=== PATIENT | female | born 1970 | race Caucasian/White ===

== ENCOUNTER 2017-02-11 15:33 | Observation (INO) | payer MEDICAID ==
[~2017-02-11] VITALS: Ht 180.3 cm; Wt 73.0 kg
[2017-02-11] MEDS ORDERED: LORazepam 1MG TABLET PO ONE (17:00)
[2017-02-11] MEDS ORDERED: LORazepam 1MG TABLET ONE (17:41)
[2017-02-11] MEDS ORDERED: ZIPRASIDONE 20 MG INJ IM ONE ×2 (18:29→18:30)
[2017-02-11 18:38] LABS: ASPARTATE AMINO TRANSFERASE 22 U/L (15-37); BLOOD UREA NITROGEN 16 mg/dL (7-18)
[2017-02-11 18:41] LABS: ACETAMINOPHEN < 2 mcg/mL (10-30)
[2017-02-11 20:57] LABS: DAU SCREEN DISCLAIMER
[2017-02-11] MEDS ORDERED: methylPREDNISolone SOD SUCC 125 MG/2 ML ONE (23:57)
[2017-02-12] MEDS ORDERED: BENZTROPINE 1 MG TABLET PO PRN (00:30)
[2017-02-12] MEDS ORDERED: DOCUSATE 100 MG CAPSULE PO PRN (00:30)
[2017-02-12] MEDS ORDERED: ACETAMINOPHEN 325 MG TABLET PO PRN (00:30)
[2017-02-12] MEDS ORDERED: ONDANSETRON ODT 4 MG PO PRN (00:30)
[2017-02-12] MEDS: NICOTINE 21 MG/24 HR PATCH.TD24 TD SCH (00:30)
[2017-02-12 00:45] VITALS: BP 95/55
[2017-02-12 08:22] VITALS: BP 119/80
[2017-02-12] MEDS: ZIPRASIDONE 20 MG INJ IM PRN (15:19)
[2017-02-12 20:16] VITALS: BP 115/64
[2017-02-13] MEDS: TRAZODONE 100MG TABLET PO PRN (01:02)
[2017-02-13] MEDS: QUETIAPINE 25MG TABLET PO PRN (01:02)
[2017-02-13] MEDS: ZIPRASIDONE 20 MG INJ IM PRN ×2 (05:48→20:43)
[2017-02-13 08:23] VITALS: BP 119/58
[2017-02-13] MEDS: NICOTINE 21 MG/24 HR PATCH.TD24 TD SCH (10:00)
[2017-02-13 19:45] VITALS: BP 114/59
[2017-02-14] MEDS: TRAZODONE 100MG TABLET PO PRN (05:07)
[2017-02-14 07:15] VITALS: BP 128/82
[2017-02-14] MEDS: ZIPRASIDONE 20 MG INJ IM PRN (08:00)
[2017-02-14] MEDS: QUETIAPINE 25MG TABLET PO PRN ×2 (09:56→17:26)
[2017-02-14] MEDS: NICOTINE 21 MG/24 HR PATCH.TD24 TD SCH (10:00)
[2017-02-15] MEDS: TRAZODONE 100MG TABLET PO PRN (01:56)
[2017-02-15] MEDS: QUETIAPINE 25MG TABLET PO PRN ×4 (01:56→20:58)
[2017-02-15 08:00] VITALS: BP 112/66
[2017-02-15] MEDS: NICOTINE 21 MG/24 HR PATCH.TD24 TD SCH (10:00)
[2017-02-15] MEDS: ZIPRASIDONE 20 MG INJ IM PRN (11:30)
[2017-02-15 19:59] VITALS: BP 91/52
[2017-02-16] MEDS: TRAZODONE 100MG TABLET PO PRN ×2 (03:09→21:52)
[2017-02-16] MEDS: QUETIAPINE 25MG TABLET PO PRN ×3 (03:20→13:48)
[2017-02-16 08:00] VITALS: BP 102/71
[2017-02-16] MEDS: NICOTINE 21 MG/24 HR PATCH.TD24 TD SCH (09:47)
[2017-02-16 19:03] VITALS: BP 109/73
[2017-02-17] MEDS: QUETIAPINE 25MG TABLET PO PRN (03:26)
[2017-02-17 07:40] VITALS: BP 114/77
[2017-02-17 08:26] LABS: ASPARTATE AMINO TRANSFERASE 16 U/L (15-37); BLOOD UREA NITROGEN 14 mg/dL (7-18)
[2017-02-17] MEDS: NICOTINE 21 MG/24 HR PATCH.TD24 TD SCH (10:00)
[2017-02-17] MEDS: ZIPRASIDONE 20 MG INJ IM PRN (10:50)
[2017-02-17] MEDS ORDERED: QUETIAPINE 25MG TABLET PO PRN (12:30)
== END 2017-02-17 18:26 ==
LOC: ED 17:49 → EDIP 23:55 → INTOOBSV 23:55 → 3E 02-12 00:43
PROVIDERS: ADMIT Family Medicine; ATTEND Family Medicine
DX: F29 Unspecified psychosis not due to a substance or known physiological condition (principal); F31.9 Bipolar disorder, unspecified; F22 Delusional disorders; F15.10 Other stimulant abuse, uncomplicated; F17.200 Nicotine dependence, unspecified, uncomplicated
CPT/HCPCS: 36415; 80053; 80307; 80329; 81001; 83735; 85025; 93005; 96372; 99285; G0378; J3486; G0480

== ENCOUNTER 2017-03-17 06:36 | Emergency (ER) | payer MEDICAID ==
[~2017-03-17] VITALS: Ht 177.8 cm; Wt 68.2 kg
[2017-03-17 06:42] VITALS: BP 112/72
== END 2017-03-17 07:59 | disposition home or self-care (01) ==
LOC: ED 07:48
DX: L02.413 Cutaneous abscess of right upper limb (principal); L02.414 Cutaneous abscess of left upper limb; Z59.0 Homelessness
CPT/HCPCS: 99283

== ENCOUNTER 2018-01-22 12:13 | Emergency (ER) | payer SELFPAY ==
[~2018-01-22] VITALS: Ht 180.3 cm; Wt 75.8 kg
[2018-01-22 12:19] VITALS: BP 114/73
[2018-01-22] MEDS ORDERED: LIDOCAINE-MPF 1%, 5ML INFIL ONE (13:00)
== END 2018-01-22 13:00 | disposition home or self-care (01) ==
LOC: ED 12:54
DX: L02.31 Cutaneous abscess of buttock (principal)
CPT/HCPCS: 99283

== ENCOUNTER 2018-05-18 13:11 | Emergency (ER) | payer OTHER, MEDICAID ==
[~2018-05-18] VITALS: Ht 180.3 cm; Wt 69.0 kg
[2018-05-18 13:14] VITALS: BP 118/55
== END 2018-05-18 14:32 | disposition home or self-care (01) ==
LOC: ED 14:27
DX: T19.2XXA Foreign body in vulva and vagina, initial encounter (principal); X58.XXXA Exposure to other specified factors, initial encounter; Y93.89 Activity, other specified; Y92.89 Other specified places as the place of occurrence of the external cause; Y99.8 Other external cause status
CPT/HCPCS: 99283

== ENCOUNTER 2019-09-06 11:59 | Emergency (ER) | payer MEDICAID ==
[~2019-09-06] VITALS: Ht 180.3 cm; Wt 71.0 kg
[2019-09-06 12:09] VITALS: BP 110/62
--- NOTE | 2019-09-06 12:14 | NUR ---
patient arrives with some blisters to ble states from wearing cleats for one week straight. she is unkept, missing teeth, she has very dirty feet.
[2019-09-06] MEDS ORDERED: NEOSPORIN OINT. PKT 1 PACKET ONE ×2 (12:20→12:21)
[2019-09-06] MEDS ORDERED: CEPHALEXIN 500 MG CAPSULE ONE (12:23)
[2019-09-06] MEDS ORDERED: SULFAMETH./TRIMETHOPRIM DS 800MG/160MG TABLET ONE (12:24)
[2019-09-06] MEDS ORDERED: SULFAMETH./TRIMETHOPRIM DS 800MG/160MG TABLET PO ONE (12:30)
[2019-09-06] MEDS ORDERED: CEPHALEXIN 500 MG CAPSULE PO ONE (12:30)
--- NOTE | 2019-09-06 12:31 | NUR ---
fsbs 100
== END 2019-09-06 12:40 | disposition home or self-care (01) ==
LOC: ED 12:38
DX: L03.116 Cellulitis of left lower limb (principal); L03.115 Cellulitis of right lower limb; F17.200 Nicotine dependence, unspecified, uncomplicated
CPT/HCPCS: 99283

== ENCOUNTER 2020-03-26 13:10 | Emergency (ER) | payer MEDICAID ==
[~2020-03-26] VITALS: Ht 180.3 cm; Wt 72.4 kg
[2020-03-26 13:36] VITALS: BP 102/59
--- NOTE | 2020-03-26 13:39 | NUR ---
PT AMBULATORY TO ROOM 5 W/ C/O R SIDE CP STARTED 2-3 WEEKS AGO. PT STATES WORSE W/ PALPATION. PT ALSO STATES SOME MIN RAN UP TO HER AND WIPED WHITE POWDER LIKE METH ON HER LEG AND SHE FELT IT IMMEDIATELY. PT ALSO HAS C/O SCAB TO L ARM. SCAB NOTED. PT RESTLESS IN ROOM. STATES "THERE'S PARASITES OR SOMETHING IN MY URINE". DENIES SI/HI. DENIES ANY PSYCH HX. PT RESTING ON GURNEY. NADN. MONITORS APPLIED. WARM BLANKET PROVIDED.
--- NOTE | 2020-03-26 13:40 | NUR ---
UA COLLECTED, LABELED, AND WALKED TO LAB. FLORIN BAEZ APRN NOTIFIED OF PT.
--- NOTE | 2020-03-26 13:59 | NUR ---
REPORT FROM FIORDALIZA JOEL. PT CARE RESPONSIBILITIES ASSUMED.
--- NOTE | 2020-03-26 14:00 | NUR ---
REPORT TO FIORDALIZA MÉNDEZ.
[2020-03-26] MEDS ORDERED: ASPIRIN 81 MG TABLET CHEW ONE (14:42)
[2020-03-26] MEDS ORDERED: ASPIRIN 81 MG TABLET CHEW PO ONE (15:00)
[2020-03-26 15:04] LABS: BASOPHILS # (AUTO) 0.04 x10^3/uL (0-0.1); BASOPHILS % (AUTO) 0 % (0-1); EOSINOPHILS # (AUTO) 0.19 x10^3/uL (0-0.4); EOSINOPHILS % (AUTO) 2 % (1-7); LYMPHOCYTES # (AUTO) 1.88 x10^3/uL (1-3.4); LYMPHOCYTES % (AUTO) 19 % (22-44); MD NO; MEAN CORPUSCULAR HEMOGLOBIN 29.9 pg (27.0-34.8); MEAN CORPUSCULAR HGB CONC 32.8 g/dL (32.4-35.8); MEAN CORPUSCULAR VOLUME 90.9 fL (80-100); MEAN PLATELET VOLUME 8.8 fL (7.4-10.4); MONOCYTES # (AUTO) 0.57 x10^3/uL (0.2-0.8); MONOCYTES % (AUTO) 6 % (2-9); NEUTROPHILS # (AUTO) 7.32 x10^3/uL (1.8-6.8); NEUTROPHILS % (AUTO) 73 % (42-75); PLATELET COUNT 232 x10^3/uL (130-400); RED BLOOD COUNT 5.02 x10^6/uL (3.82-5.3); RED CELL DISTRIBUTION WIDTH 13.3 % (9.6-15.2)
[2020-03-26 15:06] LABS: ALBUMIN 3.7 g/dL (3.4-5.0); CALCIUM 8.4 mg/dL (8.5-10.1); CHLORIDE 107 mmol/L (98-107); CREATININE 0.96 mg/dL (0.55-1.02)
[2020-03-26 15:10] LABS: TROPONIN I < 0.015 ng/mL (0.000-0.045)
[2020-03-26 15:11] LABS: ANION GAP 4 mmol/L (5-15)
== END 2020-03-26 16:31 | disposition home or self-care (01) ==
LOC: ED 14:13
DX: R07.89 Other chest pain (principal); R06.02 Shortness of breath
CPT/HCPCS: 36415; 71045; 80048; 82040; 84484; 85025; 99284

== ENCOUNTER 2020-09-10 08:09 | Emergency (ER) | payer MEDICAID ==
[~2020-09-10] VITALS: Ht 180.3 cm; Wt 63.8 kg
[2020-09-10 08:14] VITALS: BP 137/78
--- NOTE | 2020-09-10 08:21 | NUR ---
PATIENT WALKED BACK FROM TRIAGE WITH CHIEF C/O HAND PAIN. PATIENT STATES "MY BODY FEELS LIKE IT'S MELTING AND MY HANDS FEEL LIKE THEY'RE GOING TO FALL OFF, I NEED SHOTS, I NEED SPECIAL CARE." PATIENT STARTS RAMBLING ABOUT MULTIPLE THINGS, GOES OFF ON TANGENTS, EASILY REDIRECTED. NADN, CALL LIGHT WITHIN REACH.
[2020-09-10] MEDS ORDERED: ONDANSETRON 2MG/ML, 2ML IVPush ONE (08:30)
[2020-09-10] MEDS ORDERED: SODIUM CHLORIDE FLUSH 10ML SYR IVF ONE (08:30)
[2020-09-10] MEDS ORDERED: FAMOTIDINE 20 MG/2 ML IVPush ONE (08:30)
[2020-09-10] MEDS ORDERED: LORazepam 1MG TABLET PO ONE (08:30)
--- NOTE | 2020-09-10 08:49 | NUR ---
X-RAY AT BEDSIDE.
[2020-09-10 09:08] LABS: CHLORIDE 105 mmol/L (98-107)
--- NOTE | 2020-09-10 09:11 | NUR ---
PATIENT AMBULATED TO BATHROOM FOR URINE SAMPLE.
[2020-09-10 09:15] LABS: ALANINE AMINOTRANSFERASE 25 U/L (12-78); ALBUMIN 4.3 g/dL (3.4-5.0); ALKALINE PHOSPHATASE 88 U/L (45-117); ANION GAP 6 mmol/L (5-15); BASOPHILS % (AUTO) 0 % (0-1); BILIRUBIN,TOTAL 0.8 mg/dL (0.2-1.0); CALCIUM 9.6 mg/dL (8.5-10.1); CREATININE 0.93 mg/dL (0.55-1.02); EOSINOPHILS % (AUTO) 2 % (1-7); LYMPHOCYTES % (AUTO) 21 % (22-44); MEAN CORPUSCULAR HEMOGLOBIN 29.9 pg (27.0-34.8); MEAN CORPUSCULAR HGB CONC 33.9 g/dL (32.4-35.8); MEAN PLATELET VOLUME 9.3 fL (7.4-10.4); MONOCYTES % (AUTO) 8 % (2-9); NEUTROPHILS % (AUTO) 70 % (42-75); PLATELET COUNT 250 x10^3/uL (130-400); RED BLOOD COUNT 5.45 x10^6/uL (3.82-5.3); RED CELL DISTRIBUTION WIDTH 13.1 % (9.6-15.2); TOTAL PROTEIN 7.9 g/dL (6.4-8.2)
[2020-09-10 09:16] LABS: MD NO
[2020-09-10 09:17] LABS: SALICYLATE LEVEL < 1.7 mg/dL (2.8-20.0)
--- NOTE | 2020-09-10 09:18 | NUR ---
URINE SAMPLE COLLECTED AND SENT TO LAB, CRACKERS AND SODA PROVIDED FOR PATIENT.
[2020-09-10 09:39] LABS: AMPHETAMINE SCREEN, URINE Positive (Negative); BARBITURATE SCREEN, URINE Negative (Negative); BENZODIAZEPINE SCREEN, URINE Negative (Negative); CANNABINOID SCREEN, URINE Positive (Negative); COCAINE SCREEN, URINE Negative (Negative); METHADONE SCREEN, URINE Negative (Negative); OPIATE SCREEN, URINE Negative (Negative)
[2020-09-10] MEDS ORDERED: KETOROLAC 30 MG/1 ML ONE (09:40)
[2020-09-10] MEDS ORDERED: KETOROLAC 30 MG/1 ML IM ONE (10:00)
--- NOTE | 2020-09-10 10:11 | NUR ---
Patient given discharge instructions and prescription and they have confirmed that they understand the instructions. Patient ambulatory with steady gait from ED.
== END 2020-09-10 10:12 | disposition home or self-care (01) ==
LOC: ED 09:30
DX: M79.641 Pain in right hand (principal); M79.642 Pain in left hand; F15.950 Other stimulant use, unspecified with stimulant-induced psychotic disorder with delusions; F17.290 Nicotine dependence, other tobacco product, uncomplicated; Z59.0 Homelessness
CPT/HCPCS: 36415; 73130; 80053; 80299; 80307; 80320; 80329; 85025; 96372; 99284; J1885; G0480

== ENCOUNTER 2020-11-03 04:38 | Emergency (ER) | payer MEDICAID ==
[~2020-11-03] VITALS: Ht 180.3 cm; Wt 69.5 kg
[2020-11-03 04:51] VITALS: BP 105/80
--- NOTE | 2020-11-03 05:00 | NUR ---
PATIENT ESCORTED TO ROOM BY TECH. PATIENT WAS THEN SEEN WALKING OUT OF ROOM AND OPENING DOORS TO OTHER ED ROOMS DOWN [address]. RN ASKED PATIENT TO GO BACK TO HER ROOM AND PATIENT STATED "I DONT LIKE THAT ROOM. I WANT THIS ROOM" POINTING TO A DIFFERENT ROOM. RN EXPLAINED THAT PATIENT WAS PUT IN THIS ROOM AND THIS IS WHERE THE PROVIDER WOULD SEE HER. PATIENT PANTS ARE HUNG ASSISTED DOWN BUTTOCKS WHERE HER BUTTOCKS WAS EXPOSED. PATIENT AMBULATED BACK TO PREVIOUS ROOM AND SAT DOWN IN CHAIR. SHE THEN EXPLAINED THAT SHE CAME HERE FOR A PLACE TO SLEEP AND FOOD TO EAT BECAUSE HER MOM WAS NOT ABLE TO COME GET HER TONIGHT TO BRING HER HOME AND HER HOME WAS ABOUT 18 HOURS AWAY. PATIENT TOLD ME THIS STORY WHILE SHE WAS ACTIVELY EATING DOG TREATS FROM AN OPENED BOX OF "[employer]". PATIENT HAS A DISHEVELED PRESENTATION. STEADY GAIT. DR. PASTOR TO PATIENTS ROOM EVALUATING PATIENT'S EMERGENT CONCERN FOR TODAYS VISIT AND PATIENT EXPLAINED THAT SHE CAME TO THE ED TO SLEEP AND EAT. PATIENT BECAME AGITATED AND STARTED TO YELL AT DOCTOR AND SECURITY CALLED FOR REMOVAL OF THIS PATIENT FROM ED. PATIENT HESITANT BUT COOPERATIVE WITH SECURITY. ALL PERSONAL BELONGINGS WITH PATIENT ON DEPARTURE. NO IV PLACED DURING THIS ER VISIT.
== END 2020-11-03 05:12 | disposition home or self-care (01) ==
LOC: ED 05:00
DX: F15.10 Other stimulant abuse, uncomplicated (principal); Z72.9 Problem related to lifestyle, unspecified
CPT/HCPCS: 99281

== ENCOUNTER 2021-03-15 12:58 | Emergency (ER) | payer MEDICAID ==
[~2021-03-15] VITALS: Ht 180.3 cm; Wt 67.9 kg
[2021-03-15 13:01] VITALS: BP 145/99
[2021-03-15] MEDS ORDERED: BUPIVACAINE/PF 0.5% ONE (15:44)
== END 2021-03-15 16:25 | disposition home or self-care (01) ==
LOC: ED 13:30
DX: S62.346A Nondisplaced fracture of base of fifth metacarpal bone, right hand, initial encounter for closed fracture (principal); X58.XXXA Exposure to other specified factors, initial encounter; Y93.89 Activity, other specified; Y92.009 Unspecified place in unspecified non-institutional (private) residence as the place of occurrence of the external cause; Y99.8 Other external cause status
CPT/HCPCS: 29125; 99283